=== PATIENT | male | born 1985 | race Caucasian/White ===

== ENCOUNTER 2020-03-28 20:25 | Emergency (ER) | payer BC ==
[~2020-03-28] VITALS: Ht 190.5 cm; Wt 170.5 kg
[~2020-03-28 20:25] MED LIST: DAYQUIL; DOXY100C2 PO; LACT1CAP8 PO; MULT-445 PO; NAPR-514 PO; NAPR220C4 PO; ONDA8TAB12 PO
--- NOTE | 2020-03-28 20:29 | PHYS DOC ---
Past History Past Medical History: No Pertinent History Past Surgical History: Other General Adult HPI: HPI: ".. I was at [facility] the other night... In the emergency department for this abscess or cellulitis on my neck.... I had this before.. They stuck a needle in it and pushed around on it but nothing came out... And it seemed to have given worse even been taking my clindamycin 300... I do have an upcoming surgery appointment but I got to have some relief of the pressure of this thing..." Patient is a 35 year old male who presents with above hx and complaints cellulitis abscess on posterior neck. This has been area of recurrence of prior abscess and cellulitis. No recent travel outside the [facility] area. No specific ill contacts. No history immunosuppression. Patient is unsure of his last tetanus but thinks it may have been 10 years. Patient advises Ceclor did give him a rash when he was a sick baby. Patient has taken amoxicillin without problem. Patient denies history of diabetes. Does have a scheduled follow-up with surgery. Review of Systems: Review of Systems: Constitutional: Denies fever or chills Eyes: Denies change in visual acuity HENT: Denies nasal congestion or sore throat Complaints of painful abscess on back of neck. Respiratory: Denies cough or shortness of breath Cardiovascular: Denies chest pain or edema GI: Denies abdominal pain, nausea, vomiting, bloody stools or diarrhea : Denies dysuria Musculoskeletal: Denies back pain or joint pain Integument: Denies rash Neurologic: Denies headache, focal weakness or sensory changes Endocrine: Denies polyuria or polydipsia Lymphatic: Denies swollen glands Psychiatric: Denies depression or anxiety Heart Score: Risk Factors: Risk Factors: DM, Current or recent (<one month) smoker, HTN, HLP, family h istory of CAD, obesity. Risk Scores: Score 0 - 3: 2.5% MACE over next 6 weeks - Discharge Home Score 4 - 6: 20.3% MACE over next 6 weeks - Admit for Clinical Observation Score 7 - 10: 72.7% MACE over next 6 weeks - Early Invasive Strategies Family History: Family History: Noncontributory Current Medications: Current Meds: Clindamycin 300 Allergies: Allergies: Allergies Coded Allergies Type Severity Reaction Last Updated Verified cefaclor Allergy Mild Rash 09/13/15 No Physical Exam: PE: Constitutional: Moderate acute distress, non-toxic appearance. [] HENT: Normocephalic, atraumatic, bilateral external ears normal, oropharynx moist, no oral exudates, nose normal. [] Eyes: PERRLA, EOMI, conjunctiva normal, no discharge. [] Neck: Normal range of motion, no tenderness, supple, no stridor. [] Posterior neck has a pointing abscess with surrounding cellulitis with this tracks up on left-sided neck. Total area is approximately 8 x 16 cm. Does have nuchal nodes on left side. Cardiovascular:Heart rate regular rhythm, no murmur [] Lungs & Thorax: Bilateral breath sounds equal apex on auscultation [] Abdomen: Bowel sounds normal, soft, no tenderness, no masses, no pulsatile masses. Obese Skin: Warm, dry, no erythema, no rash. Multiple tattoos Back: No tenderness, no CVA tenderness. [] Extremities: No tenderness, no cyanosis, no clubbing, ROM intact, no edema. [] Neurologic: Alert and oriented X 3, normal motor function, normal sensory function, no focal deficits noted. [] Psychologic: Affect anxious, judgement normal, mood normal. [] EKG: EKG: [] Radiology/Procedures: Radiology/Procedures: [] Course & Med Decision Making: Course & Med Decision Making Pertinent Labs and Imaging studies reviewed. (See chart for details) Procedure note-area of cellulitis and abscess prepped with Betadine-1 stick with a 11 blade with return of pus. Significant drainage of pus after septations of the abscess broken down with a sterile Q-tip.. Did receive quarter-inch packing of gauze. A dressing with Band-Aid and antibiotic ointment. Area was reinforced with 4 x 4's. Patient keep area clean and dry . May change dressing 4 times a day with Polysporin. We will add Bactrim DS twice a day to the clindamycin regimen. We will give a tetanus booster as needed. Patient given 2 Vicoprofen. Patient follow-up primary care. Patient follow-up with surgery clinic. Regardless packing must be removed within 3 days. Most likely this area will need repacking, if not completely remove the septated abscess area. Patient return if any concerns. [] Dragon Disclaimer: Dragon Disclaimer: This electronic medical record was generated, in whole or in part, using a voice recognition dictation system. Departure Departure: Disposition: 01 HOME/RESIDENCE PRIOR TO ADM Condition: STABLE Referrals: PCP,NO (PCP) Scripts Sulfamethoxazole/Trimethoprim (BACTRIM DS TABLET) 1 Each Tablet 1 TAB PO BID for abscess for 10 Days, #20 TAB 0 Refills Prov: JOSE FREEDMAN MD 03/28/20 Justification of Admission: Justification of Admission: Justification of Admission Dx: N/A Dragon Disclaimer This chart was dictated in whole or in part using Voice Recognition software in a busy, high-work load, and often noisy Emergency Department environment. It may contain unintended and wholly unrecognized errors or omissions. Dragon Disclaimer This chart was dictated in whole or in part using Voice Recognition software in a busy, high-work load, and often noisy Emergency Department environment. It may contain unintended and wholly unrecognized errors or omissions. JOSE FREEDMAN MD Mar 28, 2020 20:29
[2020-03-28 20:40] VITALS: BP 167/95
[2020-03-28] MEDS ORDERED: HYDROcodon/IBUPROFEN 7.5/200MG 1 TAB TABLET ONE (21:07)
[2020-03-28] MEDS ORDERED: DIPH,PERTUSS(ACELL),TET VAC/PF 0.5 ML SYRINGE. VAX IM ONE ×2 (21:07→21:15)
[2020-03-28] MEDS ORDERED: SMZ/TMP 800/160MG TABLET. PO ONE ×2 (21:07→21:15)
[2020-03-28] MEDS ORDERED: SULF1TAB24 PO (21:14)
[2020-03-28] MEDS ORDERED: HYDROcodon/IBUPROFEN 7.5/200MG 1 TAB TABLET PO ONE (21:15)
== END 2020-03-28 21:20 | disposition home or self-care (01) ==
LOC: ER 20:25
DX: L02.11 Cutaneous abscess of neck (principal); L03.221 Cellulitis of neck; Z88.1 Allergy status to other antibiotic agents
CPT/HCPCS: 10060; 90471; 90715; 99283